=== PATIENT | female | born 1950 ===

== ENCOUNTER → 2024-12-21 09:50 | Outpatient (BNVA) | payer MEDICARE, BC, SELFPAY | PROVIDERS: PCP Family Medicine; Referring Provider Family Medicine; Visit Provider Internal Medicine | DX: E16.2 Hypoglycemia, unspecified (principal); R63.4 Abnormal weight loss; F41.1 Generalized anxiety disorder | CPT/HCPCS: 99204 ==

== ENCOUNTER → 2025-01-13 11:39 | Outpatient (BNVA) | payer MEDICARE, BC, SELFPAY | PROVIDERS: PCP Family Medicine; Referring Provider Family Medicine; Visit Provider Internal Medicine | DX: E16.2 Hypoglycemia, unspecified (principal); R63.4 Abnormal weight loss | CPT/HCPCS: 99214 ==

== ENCOUNTER 2025-01-18 11:05 | Oncology outpatient (recurring) (ONCR) | payer MEDICARE, BC, SELFPAY ==
[2025-01-18] MEDS: cosyntropin 0.25 mg SDV IVP (12:33)
[2025-01-18 13:14] LABS: Cosyntropin Baseline 11.92 mcg/dL
[2025-01-18 13:15] LABS: Free T4 Free Thyroxine 0.89 ng/dL (0.82-1.77); Thyroid Stimulating Hormone 1.18 uIU/mL (0.27-4.20)
[2025-01-18 13:45] LABS: Cosyntropin 30 Minute 22.97 mcg/dL
[2025-01-19 07:05] LABS: T3 Total 78 ng/dL (76-181)
[2025-01-27 22:13] LABS: Cortisol ,Free,LC/MS, S 0.42 mcg/dL
== END 2025-02-16 23:59 | disposition home or self-care (01) ==
PROVIDERS: PCP Family Medicine; Visit Provider Internal Medicine
DX: R79.89 Other specified abnormal findings of blood chemistry (principal); R63.4 Abnormal weight loss; E16.2 Hypoglycemia, unspecified; F41.1 Generalized anxiety disorder
CPT/HCPCS: 36415; 82530; 82533; 84439; 84443; 84480; J0834

== ENCOUNTER → 2025-03-29 10:17 | Outpatient (BNVA) | payer MEDICARE, BC, SELFPAY | PROVIDERS: PCP Family Medicine; Referring Provider Family Medicine; Visit Provider Internal Medicine | DX: R79.89 Other specified abnormal findings of blood chemistry (principal); R63.4 Abnormal weight loss | CPT/HCPCS: 99214 ==